=== PATIENT | female | born 1985 | race Caucasian/White ===

== ENCOUNTER 2017-02-11 13:14 | Emergency (ER) | payer OTHER ==
[~2017-02-11] VITALS: Ht 167.6 cm; Wt 95.5 kg
[~2017-02-11 13:14] MED LIST: DOCU-41 PO; IBUP800T28 PO; ONDA8TAB10 PO; OXYC-284 PO
[2017-02-11 13:18] VITALS: BP 145/115; RESP 18; O2SAT 98
--- NOTE | 2017-02-11 13:22 | ED.REPORT ---
HPI-Sore Throat ONLY HPI/PE done Feb 11, 2017 ED Provider: History of Present Illness: has a sore throat since Wednesday. worse last night and today. no fever. priamry kevyn is feliciano 11/30 took ibuprofen 600 mg at 1230 today. Also took some left over antibiotics for a few days. Many episodes of swollen tonsils. Nursing Notes Stated Complaint: POSSIBLE STREP Chief Complaint: ENT & Mouth Allergies: Coded Allergies: No Known Allergies (Verified Allergy, Unknown, 04/18/15) Scheduled Docusate Sodium (Colace) 100 Mg Capsule 100 MG PO BID Scheduled PRN Ibuprofen (Ibuprofen) 800 Mg Tablet 600 MG PO Q6 PRN PRN For Pain Ondansetron ODT (Ondansetron ODT) 8 Mg Tab.rapdis 8 MG PO QID PRN PRN For Nausea Oxycodone HCl/Acetaminophen 5-325 (Percocet 5-325) 1 Each Tablet 1-2 EACH PO Q4 PRN PRN For Pain General Time Seen by MD: 13:22 Chief Complaint Sore throat Hx Obtained From: Patient Location: : Tonsil left: Tonsil right Past Medical History Past Medical History none Denies: Asthma, Diabetes mellitus Past Surgical History none Smoking History Current Every Day Smoker (10 cig a day for 6 months), Unknown if Ever Smoker Social History Alcohol Use: 1-3 per week Drug Use: Denies drug use Other Social History: Good social support, , Lives with children, Local resident Occupation lives with brother, getting no work or school 02/11/2017 Ambulatory Status Independent Review of Systems Basic Review of Systems Eyes: Vision NL, No discharge Hematologic: No bleeding, No bruising Psychiatric: Normal thought content Physical Exam Initial Vital Signs Vital Signs (First) Date Time Temp Pulse Resp B/P Pulse Ox O2 Delivery O2 Flow Rate FiO2 02/11/17 13:18 36.6 84 18 145/115 98 Room Air Initial VS: Reviewed, Vital signs abnormal Head / Eyes: Atraumatic, Normocephalic, PERRL Respiratory: Breath sounds normal, Clear to auscultation, No respiratory distress Cardiovascular: Regular rate & rhythm, Heart sounds normal, Intact distal pulses Abdomen / GI: Soft, Non-tender, No guarding, No rebound, No distention Back: No CVA tenderness Lymphatic: No lymphadenopathy Extremities: Vascular intact, Neuro intact, No swelling, No tenderness Skin: Warm, Dry, No cyanosis Neurologic: Alert, Oriented, Nonfocal Psychiatric: Mood/affect normal, Behavior normal, Normal thought content General/Constitutional: Awake, Alert, No acute distress, Well appearing, Well developed, Well hydrated Pharynx / Tonsils / Uvula: Positive: Tonsillar erythema L, Tonsillar erythema R , Tonsillar exudate L, Tonsillar exudate R, Tonsillar swelling L, Tonsillar swelling R tonsils at 3 plus with visible white pockets Neck: Atraumatic, Supple, No meningismus Soft Tissue Neck: Positive: Cervical adenopathy L... (Anterior), Cervical adenopathy R... (Anterior) Respiratory / Chest: Atraumatic, Breath sounds NL, Breath sounds = bilat, No respiratory distress Cardiovascular: Heart rate NL, Regular rhythm, Heart sounds NL, No gallop Interpretation & Diagnostics Lab Results Interpretation Test 02/11/17 14:02 Urine Color Yellow (YELLOW) Urine Appearance Slightly cloudy Urine pH 6.0 (5.0-8.0) Urine Specific [place] 1.025 (1.003-1.035) Urine Protein Tracemg/dL (NEG,TRACE) Urine Glucose (UA) Negativemg/dL (NEGATIVE) Urine Ketones Tracemg/dL (NEGATIVE) Urine Occult Blood Negative (NEGATIVE) Urine Nitrite Negative (NEGATIVE) Urine Bilirubin Negative (NEGATIVE) Urine Urobilinogen Normalmg/dL (NORMAL) Urine Leukocyte Esterase Moderate (NEGATIVE) Urine RBC 0-2/hpf (0-2) Urine WBC 11-50/hpf (0-5) Urine Epithelial Cells Many/hpf (NONE-MOD) Urine Crystals None seen (NONE SEEN) Urine Bacteria Moderate/hpf (NONE-FEW) Urine Hyaline Casts None/lpf (NONE) Urine Granular Casts None seen (NONE SEEN) Urine Waxy Casts None seen (NONE SEEN) Urine Red Blood Cell Casts None seen (NONE SEEN) Urine White Blood Cell Casts None seen (NONE SEEN) Urine Mucus Present (None Seen) Urine Trichomonas None seen (NONE SEEN) Urine Yeast None (NONE SEEN) Urinalysis Comment None Urine Culture Reflexed Indicated Re-Eval/Medical Decision Med Decision/Clinical Course rapid strep is negative but with antibiotic use, may have altered outcome of test. Discussed with patient need to follow with ENT. No sign of [employer] Discharge & Departure Primary Impression: Tonsillar enlargement Additional Impressions: Tonsillar erythema Tonsillar exudate Tonsillitis Disposition: Home Patient Instructions: Tonsillitis (ED) Additional Instructions: The fact that you have taken antibiotics already may have changed the outcome of the strep test. Start azithromycin daily for 5 days. You need to see Dr. Mariscal at [facility]. Please call his office for follow up. You are being provided a prescription for diflucan. Please take this after 10 days. The antibiotics stay in your body for 10 days. I am sorry this is happening so frequently. Referrals: Alon Hart MD (PCP) Josh Mariscal MD EDSupervising Provider for APC: Travis Olmstead MD copies to: Alon Hart MD, Sue ARNP Feb 11, 2017 13:22
[2017-02-11 14:24] LABS: APPEARANCE,URINE SLIGHTLY CLOUDY (CLEAR,HAZY); COLOR,URINE YELLOW (YELLOW); OCCULT BLOOD,URINE NEGATIVE (NEGATIVE)
[2017-02-11 14:29] LABS: UROBILINOGEN,URINE NORMAL (NORMAL)
[2017-02-11 15:32] VITALS: BP 139/98; PULSE 85; RESP 18; O2SAT 98
[2017-02-13] MEDS ORDERED: AZIT500T5 PO (11:33)
[2017-02-13] MEDS ORDERED: CEFI400C PO (11:33)
== END 2017-02-11 15:24 | disposition home or self-care (01) ==
LOC: SED 13:14
DX: J03.90 Acute tonsillitis, unspecified (principal); F17.210 Nicotine dependence, cigarettes, uncomplicated